=== PATIENT | female | born 1995 | race Caucasian/White ===

== ENCOUNTER → 2023-08-26 | Outpatient (CLI) | payer BC ==
[2023-08-26 11:11] LABS: BASOPHILS % 0.6 % (0.0-2.0); EOSINOPHILS % 1.5 % (0.0-5.0); HEMATOCRIT. 36.3 % (36.0-48.0); HEMOGLOBIN. 11.9 g/dL (12.0-16.0); LYMPHOCYTES % 33.6 % (20.0-50.0); MEAN CORPUSCULAR HGB CONC 32.9 g/dL (31.0-37.0); MEAN CORPUSCULAR VOLUME 88.1 fL (81.0-99.0); MONOCYTES % 6.2 % (2.0-8.0); NEUTROPHILS % 58.1 % (40.0-76.0); PLATELET 257 x1000/uL (130-400); RED BLOOD CELL COUNT 4.12 mill/uL (4.2-5.4); RED CELL DISTRIBUTION WIDTH 13.9 % (11.6-14.6); WHITE BLOOD COUNT 6.4 x1000/uL (4.5-11.0)
[2023-08-26 11:45] LABS: ALANINE AMINOTRANSFERASE 15 IU/L (10-49); ALBUMIN 4.3 g/dL (3.2-4.8); ASPARTATE AMINOTRANSFERASE 18 IU/L (<34); BILIRUBIN TOTAL 0.6 mg/dL (0.1-1.0); CALCIUM 9.3 mg/dL (8.7-10.4); CARBON DIOXIDE 27 mEq/L (21-32); CHLORIDE 107 mEq/L (98-107); CHOLESTEROL 143 mg/dL (<200); CREATININE 0.7 mg/dL (0.6-1.0); GLUCOSE 91 mg/dL (70-105); HDL CHOLESTEROL 81 mg/dL (>65); LDL CHOLESTEROL 82 mg/dL (5-100); POTASSIUM 4.3 mEq/L (3.5-5.1); PROTEIN TOTAL 6.8 g/dL (6.0-8.3); SODIUM 136 mEq/L (136-145); T4 FREE 1.06 ng/dL (0.89-1.76); THYROID STIMULATING HORMONE 1.59 uIU/mL (0.55-4.78); TRIGLYCERIDE 64 mg/dL (0-150); UREA NITROGEN BLOOD 10 mg/dL (9-23)
== END | disposition home or self-care (01) ==
LOC: LAB 10:44
PROVIDERS: ATTEND Internal Medicine
DX: Z00.01 Encounter for general adult medical examination with abnormal findings (principal); E11.9 Type 2 diabetes mellitus without complications; E03.9 Hypothyroidism, unspecified; E78.5 Hyperlipidemia, unspecified
CPT/HCPCS: 36415; 80053; 80061; 83036; 84439; 84443; 85025

== ENCOUNTER → 2023-08-31 | Outpatient (CLI) | payer BC | END | disposition home or self-care (01) | LOC: US 09:51 → EDUNIT# 10:00 | PROVIDERS: ATTEND Internal Medicine | DX: E04.2 Nontoxic multinodular goiter (principal); R22.1 Localized swelling, mass and lump, neck; N83.9 Noninflammatory disorder of ovary, fallopian tube and broad ligament, unspecified | CPT/HCPCS: 76536; 76830; 76856 ==

== ENCOUNTER → 2024-11-19 | Outpatient (CLI) | payer BC ==
[2024-11-19 09:11] LABS: BASOPHILS % 0.7 % (0.0-2.0); EOSINOPHILS % 1.4 % (0.0-5.0); HEMATOCRIT. 38.4 % (36.0-48.0); HEMOGLOBIN. 12.9 g/dL (12.0-16.0); LYMPHOCYTES % 38.8 % (20.0-50.0); MEAN CORPUSCULAR HEMOGLOBIN 29.4 pg (28.0-32.0); MEAN CORPUSCULAR HGB CONC 33.5 g/dL (31.0-37.0); MEAN CORPUSCULAR VOLUME 87.7 fL (81.0-99.0); MEAN PLATELET VOLUME 7.9 fl (7.4-10.4); MONOCYTES % 6.3 % (2.0-8.0); NEUTROPHILS % 52.8 % (40.0-76.0); PLATELET 236 x1000/uL (130-400); RED BLOOD CELL COUNT 4.38 mill/uL (4.2-5.4); RED CELL DISTRIBUTION WIDTH 14.3 % (11.6-14.6); WHITE BLOOD COUNT 5.3 x1000/uL (4.5-11.0)
[2024-11-19 09:13] LABS: CHLORIDE 106 mEq/L (98-107); POTASSIUM 4.2 mEq/L (3.5-5.1); SODIUM 139 mEq/L (136-145)
[2024-11-19 09:14] LABS: CALCIUM 9.8 mg/dL (8.7-10.4); CARBON DIOXIDE 30 mEq/L (21-32)
[2024-11-19 09:19] LABS: CREATININE 0.7 mg/dL (0.6-1.0); GLUCOSE 93 mg/dL (70-105); TRIGLYCERIDE 41 mg/dL (0-150); UREA NITROGEN BLOOD 9 mg/dL (9-23)
[2024-11-19 09:20] LABS: LDL CHOLESTEROL 69 mg/dL (5-100)
[2024-11-19 09:21] LABS: ALANINE AMINOTRANSFERASE 12 IU/L (10-49); ALBUMIN 4.2 g/dL (3.2-4.8); ASPARTATE AMINOTRANSFERASE 18 IU/L (<34); CHOLESTEROL 149 mg/dL (<200); HDL CHOLESTEROL 70 mg/dL (>65)
[2024-11-19 09:22] LABS: PROTEIN TOTAL 6.9 g/dL (6.0-8.3)
[2024-11-19 09:23] LABS: T4 FREE 1.07 ng/dL (0.89-1.76)
[2024-11-19 09:29] LABS: VITAMIN B12 SERUM 555 pg/mL (211-911)
[2024-11-20 09:11] LABS: *T3 UPTAKE 28 % (24-39)
== END | disposition home or self-care (01) ==
LOC: LAB 08:06
PROVIDERS: ATTEND Internal Medicine
DX: I10 Essential (primary) hypertension (principal); E11.9 Type 2 diabetes mellitus without complications; E03.9 Hypothyroidism, unspecified; E78.5 Hyperlipidemia, unspecified; E53.9 Vitamin B deficiency, unspecified
CPT/HCPCS: 36415; 80053; 80061; 82607; 83036; 84439; 84442; 84443; 84479; 85025